=== PATIENT | female | born 1965 | race Native Hawaiian/Other Pacific Islander ===

== ENCOUNTER 2019-12-07 21:09 | Outpatient (CLI) | payer BC | END 2019-12-07 21:13 | disposition short-term general hospital (02) | LOC: AMB 21:09 | DX: M54.89 Other dorsalgia (principal); W01.0XXA Fall on same level from slipping, tripping and stumbling without subsequent striking against object, initial encounter; Y92.89 Other specified places as the place of occurrence of the external cause | CPT/HCPCS: A0425; A0429 ==

== ENCOUNTER 2019-12-07 21:17 | Emergency (ER) | payer BC ==
[~2019-12-07] VITALS: Ht 167.6 cm; Wt 100.2 kg
[2019-12-07 23:20] VITALS: BP 128/79; TEMP 97.9
== END 2019-12-07 23:25 | disposition home or self-care (01) ==
LOC: ED 21:17
DX: S22.32XA Fracture of one rib, left side, initial encounter for closed fracture (principal); S22.069A Unspecified fracture of T7-T8 vertebra, initial encounter for closed fracture; S22.079A Unspecified fracture of T9-T10 vertebra, initial encounter for closed fracture; S27.321A Contusion of lung, unilateral, initial encounter; W10.9XXA Fall (on) (from) unspecified stairs and steps, initial encounter; Y92.098 Other place in other non-institutional residence as the place of occurrence of the external cause
CPT/HCPCS: 96372; 99283; J1885

== ENCOUNTER 2020-06-04 22:13 | Observation (INO) | payer BC ==
[~2020-06-04] VITALS: Ht 167.6 cm; Wt 110.9 kg
[2020-06-04 23:20] LABS: PLATELET COUNT 203 K/uL (152-353)
[2020-06-04 23:35] LABS: POTASSIUM 3.3 mmol/L (3.6-5.2); SODIUM 145 mmol/L (136-145)
[2020-06-05 00:05] VITALS: BP 132/84; TEMP 97.8; Ht 167.6 cm; Wt 110.9 kg
[2020-06-05 03:35] VITALS: BP 86/51; TEMP 98.3
[2020-06-05 08:00] VITALS: BP 117/82; TEMP 97.6
[2020-06-05 12:00] VITALS: BP 137/78; TEMP 97.7
[2020-06-05 16:00] VITALS: BP 129/78; TEMP 97.5
[2020-06-05 19:14] LABS: PLATELET COUNT 191 K/uL (152-353)
[2020-06-05 19:36] LABS: POTASSIUM 3.2 mmol/L (3.6-5.2)
[2020-06-05 20:00] VITALS: BP 156/84; TEMP 98.7
[2020-06-05] MEDS ORDERED: HYDR25TA60 PO (20:09)
[2020-06-05] MEDS ORDERED: GABA300C2 PO (20:09)
[2020-06-05] MEDS ORDERED: TOPAMAX50 MG PO (20:09)
[2020-06-05] MEDS ORDERED: FURO40TA93 PO (20:10)
[2020-06-05] MEDS ORDERED: METF500T PO (20:11)
[2020-06-05] MEDS ORDERED: MOBIC15 MG PO (20:11)
[2020-06-05] MEDS ORDERED: LEVO0.0529 PO (20:12)
[2020-06-05] MEDS ORDERED: PHENTERMINE H37.5 MG PO (20:14)
[2020-06-06] VITALS: BP 110/66; TEMP 98.2
[2020-06-06 04:00] VITALS: BP 110/70; TEMP 98
[2020-06-06 05:53] LABS: PLATELET COUNT 191 K/uL (152-353)
[2020-06-06 06:19] LABS: POTASSIUM 4.2 mmol/L (3.6-5.2)
[2020-06-06 08:00] VITALS: BP 109/69; TEMP 97.7
[2020-06-06 12:00] VITALS: BP 145/88; TEMP 98.1
[2020-06-06 16:00] VITALS: BP 129/70; TEMP 97.5
== END 2020-06-06 17:04 | disposition home or self-care (01) ==
LOC: MED/SURG 22:13
PROVIDERS: ADMIT Family Medicine
DX: J18.9 Pneumonia, unspecified organism (principal); R07.89 Other chest pain; E46 Unspecified protein-calorie malnutrition; I10 Essential (primary) hypertension; E66.8 Other obesity
CPT/HCPCS: 36415; 36600; 80053; 82728; 82805; 83735; 83880; 84100; 84484; 85027; 85379; 86140; 87040; 93005; 94760; 96365; 96366; 96367; 96372; 96375; 99220; G0378; G0379; J0456; J0696; J1100; J1650

== ENCOUNTER 2020-09-08 13:10 | Outpatient (CLI) | payer BC ==
[~2020-09-08 13:10] MED LIST: FURO40TA93 PO; GABA300C2 PO; HYDR25TA60 PO; LEVO0.0529 PO; METF500T PO; MOBIC15 MG PO; PHENTERMINE H37.5 MG PO; TOPAMAX50 MG PO
== END 2020-09-08 19:15 | disposition home or self-care (01) ==
LOC: RAD 13:10
PROVIDERS: ATTEND Internal Medicine Cardiovascular Disease
DX: R94.31 Abnormal electrocardiogram [ECG] [EKG] (principal)

== ENCOUNTER 2021-05-06 13:36 | Outpatient (CLI) | payer BC ==
[2021-05-06 14:26] LABS: PARTIAL THROMBOPLASTIN TIME 22.5 SECONDS (24.5-33.6)
== END 2021-05-06 21:07 | disposition home or self-care (01) ==
LOC: LABW 13:36
PROVIDERS: ATTEND Family Medicine
DX: Z01.818 Encounter for other preprocedural examination (principal)
CPT/HCPCS: 36415; 81000; 85610; 85730; 87070; 93005